=== PATIENT | female | born 1980 | race Caucasian/White ===

== ENCOUNTER 2017-07-26 21:55 | Emergency (ER) | payer MEDICAID ==
[2017-07-26 22:46] VITALS: BP 118/72; PULSE 76; RESP 20; TEMP 98.2; O2SAT 99
[2017-07-26 23:35] LABS: HCG,QUALITATIVE URINE NEGATIVE (NEGATIVE)
[2017-07-26 23:40] LABS: SQUAMOUS EPITHIAL 1 /hpf (0-5); URINE BILIRUBIN NEGATIVE (NEGATIVE); URINE BLOOD NEGATIVE (NEGATIVE); URINE CLARITY Clear (Clear); URINE COLOR Yellow (YELLOW); URINE GLUCOSE (UA) NORMAL (Normal); URINE HYALINE CAST 0-2 /lpf (0-2); URINE LEUKOCYTE ESTERASE NEG Leu/uL (Negative); URINE PROTEIN NEGATIVE (NEGATIVE); URINE UROBILINOGEN NORMAL mg/dL (0.2-1.0)
--- NOTE | 2017-07-27 00:07 | C.PDOC ---
History Of Present Illness 37 year old female presents to the ER with a complaint of right lower back pain for the past 4 days that has been progressively worsening and radiating down the right buttock and right thigh. Denies trauma, dysuria, hematuria, incontinence, weakness, or numbness. Patient has not taken anything for the pain. Time Seen by Provider: 07/26/17 22:47 Chief Complaint (Nursing): Back Pain History Per: Patient History/Exam Limitations: no limitations Onset/Duration Of Symptoms: Days Current Symptoms Are (Timing): Still Present Quality Of Discomfort: Unable To Describe Previous Symptoms: None Associated Symptoms: None Recent travel outside of the [place]: No Past Medical History Reviewed: Historical Data, Nursing Documentation, Vital Signs Vital Signs: Last Vital Signs Temp 98.2 F 07/26/17 22:44 Pulse 76 07/26/17 22:44 Resp 20 07/26/17 22:44 BP 118/72 07/26/17 22:44 Pulse Ox 99 07/27/17 01:57 Family History: States: Unknown Family Hx - Social History Hx Tobacco Use: No Hx Alcohol Use: No Hx Substance Use: No - Immunization History Hx Tetanus Toxoid Vaccination: No Hx Influenza Vaccination: No Hx Pneumococcal Vaccination: No Review Of Systems Genitourinary: Negative for: Dysuria, Incontinence, Hematuria Musculoskeletal: Positive for: Back Pain, Leg Pain Neurological: Negative for: Weakness, Numbness Physical Exam - Physical Exam Appears: Non-toxic Skin: Normal Color, Warm, Dry Head: Atraumatic, Normacephalic Eye(s): bilateral: Normal Inspection Oral Mucosa: Moist Chest: Symmetrical, No Tenderness Cardiovascular: Rhythm Regular Respiratory: Normal Breath Sounds, No Rales, No Rhonchi, No Wheezing Gastrointestinal/Abdominal: Soft, No Tenderness, No Distention Neurological/Psych: Oriented x3, Normal Speech ED Course And Treatment O2 Sat by Pulse Oximetry: 99 (Room air) Pulse Ox Interpretation: Normal Progress Note: UA ordered, results were negative. Flexeril and motrin administered. Patient is ambulatory in the ER in no acute distress, vitals are stable, will discharge home with Rx and advised to follow up with PMD Disposition Counseled Patient/Family Regarding: Diagnosis, Need For Followup, Rx Given - Disposition Referrals: Trey Root MD [Medical Doctor] - Disposition: HOME/ ROUTINE Disposition Time: 00:04 Condition: STABLE Additional Instructions: Take medications as directed Follow up with PMD Return to ER if worse Prescriptions: Cyclobenzaprine [Cyclobenzaprine HCl] 10 mg PO HS #7 tab Ibuprofen [Motrin] 600 mg PO Q6H #24 tab Instructions: Lumbar Muscle Strain (DC) Forms: [facility] (Irish) - Clinical Impression Clinical Impression: Low back strain - PA / LAN SPECIALIST / Resident Statement MD/DO has reviewed & agrees with the documentation as recorded. - Scribe Statement The provider has reviewed the documentation as recorded by the Scribmaria esther Pinon All medical record entries made by the Karley were at my direction and personally dictated by me. I have reviewed the chart and agree that the record accurately reflects my personal performance of the history, physical exam, medical decision making, and the department course for this patient. I have also personally directed, reviewed, and agree with the discharge instructions and disposition.
== END 2017-07-27 00:13 | disposition home or self-care (01) ==
LOC: C.ER 21:55
DX: S39.012A Strain of muscle, fascia and tendon of lower back, initial encounter (principal); X58.XXXA Exposure to other specified factors, initial encounter; Y92.9 Unspecified place or not applicable